=== PATIENT | female | born 1970 | race African-American/Black ===

== ENCOUNTER 2021-07-25 14:22 | Emergency (ER) | payer BC, OTHER ==
[~2021-07-25] VITALS: Ht 160 cm; Wt 63.5 kg
[2021-07-25 14:28] VITALS: BP 126/87
[2021-07-25] MEDS ORDERED: METHOCARBAMOL500 M2 PO (15:12)
== END 2021-07-25 16:28 | disposition home or self-care (01) ==
LOC: ER 14:22
DX: M62.830 Muscle spasm of back (principal); Z98.51 Tubal ligation status